=== PATIENT | female | born 1935 | race Caucasian/White ===

== ENCOUNTER → 2021-04-23 | Outpatient (CLI) | payer OTHER ==
[~2021-04-23] MED LIST: AMIO200 PO; ASPI81EC PO; ATOR10 PO; CHOL10002 PO; Coumadin5 MG PO; DIPH50 PO; DOCU100 PO; LOSHYD PO; Lopressor 25 mg25 MG PO; Lovenox60 MG/0.6 SC; MULVITMIND PO; Ocuvite Lutein1 EACH PO; VITAMIN D10000 UNIT PO
[2021-04-27 13:10] LABS: M-SPIKE, % Not Observed % (Not Observed); PROTEIN,TOTAL,URINE 8.3 mg/dL (Not Estab.)
== END | disposition home or self-care (01) ==
LOC: LAB 07:00 → LAB SHORT 07:00 → LAB FUT 04-08 09:25
PROVIDERS: Internal Medicine
DX: R79.89 Other specified abnormal findings of blood chemistry (principal)
CPT/HCPCS: 81050; 84166; 86335

== ENCOUNTER 2021-08-15 11:49 | Emergency (ER) | payer OTHER ==
[~2021-08-15] VITALS: Ht 165.1 cm; Wt 59.0 kg
[2021-08-15 12:14] LABS: BASOPHILS ABSOLUTE AUTO 0.08 K/mm3 (0.00-0.23); BASOPHILS PERCENT AUTO 1 % (0-2); EOSINOPHILS PERCENT AUTO 4 % (0-6); Hematocrit 43.9 % (33.0-51.0); IMMATURE GRAN ABSOLUTE AUTO 0.04 K/mm3 (0.00-0.10); IMMATURE GRAN PERCENT AUTO 0 % (0-1); LYMPHOCYTES ABSOLUTE AUTO 1.79 K/mm3 (0.84-5.20); LYMPHOCYTES PERCENT AUTO 18 % (21-46); MONOCYTES PERCENT AUTO 9 % (4-13); Mean Corpuscular HGB 29.6 pg (26.0-34.0); Mean Corpuscular HGB Conc 31.9 g/dL (31.5-36.5); Mean Corpuscular Volume 93 fL (80-100); Mean Platelet Volume 9.2 fL (9.1-12.4); NEUTROPHILS PERCENT AUTO 68 % (41-73); Platelet Count 749 K/mm3 (150-400); RDW Coefficient Variation 12.8 % (11.7-14.2); RDW Standard Deviation 44.3 fL (35.1-46.3); Red Blood Cell Count 4.73 M/mm3 (3.80-5.20); White Blood Cell Count 9.91 K/mm3 (4.00-11.30)
[2021-08-15] MEDS ORDERED: ATOR10 PO (12:32)
[2021-08-15] MEDS ORDERED: LOSA50 PO (12:33)
[2021-08-15] MEDS ORDERED: HYDCHL12.5 PO (12:33)
[2021-08-15 12:34] LABS: Albumin, Blood 3.7 g/dL (3.4-5.0); Albumin/Globulin Ratio 1.1 (0.8-1.8); Bilirubin, Total 0.7 mg/dL (0.1-1.0); Bun/Creatinine Ratio 33.2 (12.0-20.0); Calcium, Blood 9.5 mg/dL (8.5-10.1); Creatinine, Blood 0.93 mg/dL (0.40-1.00); Globulin, Blood 3.4 g/dL (2.2-4.0); Potassium, Blood 4.1 mmol/L (3.5-5.5); Total Protein, Blood 7.1 g/dL (6.4-8.2)
[2021-08-15] MEDS ORDERED: Amlodipine Bes2.5 MG (12:34)
[2021-08-15] MEDS ORDERED: POTA10T PO (12:34)
[2021-08-15 12:47] LABS: Source, Urine Voided
[2021-08-15 12:50] LABS: Appearance, Urine Clear (Clear); Bilirubin, Urine Neg (Neg); Blood, Urine 3+ (Neg); Color, Urine Yellow (P-Yellow); Glucose Qualitative, Urine Neg (Neg); Ketones, Urine Neg (Neg); Leukocyte Esterase, Urine 3+ (Neg); Nitrite, Urine Neg (Neg); Protein, Urine Neg (Neg); Urobilinogen, Urine NORM (Normal)
[2021-08-15 13:03] LABS: Amorphous Casts Rare /lpf (0); Bacteria Few /hpf; Squamous Epithelial Cells Few /hpf (Few)
[2021-08-15] MEDS ORDERED: CEPH500 PO (14:25)
== END 2021-08-15 14:46 | disposition home or self-care (01) ==
LOC: ER 11:49
PROVIDERS: Emergency Medicine
DX: N39.0 Urinary tract infection, site not specified (principal); R41.0 Disorientation, unspecified; I10 Essential (primary) hypertension; Z91.040 Latex allergy status; Z79.899 Other long term (current) drug therapy; Z79.82 Long term (current) use of aspirin
CPT/HCPCS: 70450; 80053; 81001; 85025; 87086; 93005; 93010; A9270

== ENCOUNTER → 2022-08-19 | Outpatient (CLI) | payer OTHER ==
[~2022-08-19] MED LIST changes: +Amlodipine Bes2.5 MG; +CEPH500 PO; +HYDCHL12.5 PO; +LOSA50 PO; +POTA10T PO
[2022-08-19 10:33] LABS: BASOPHILS PERCENT AUTO 1 % (0-2); EOSINOPHILS ABSOLUTE AUTO 0.41 K/mm3 (0.00-0.68); EOSINOPHILS PERCENT AUTO 3 % (0-6); Hematocrit 42.5 % (33.0-51.0); Hemoglobin 13.7 g/dL (11.5-16.0); IMMATURE GRAN ABSOLUTE AUTO 0.05 K/mm3 (0.00-0.10); IMMATURE GRAN PERCENT AUTO 0 % (0-1); LYMPHOCYTES PERCENT AUTO 14 % (21-46); MONOCYTES ABSOLUTE AUTO 1.06 K/mm3 (0.16-1.47); MONOCYTES PERCENT AUTO 9 % (4-13); Mean Corpuscular HGB 29.8 pg (26.0-34.0); Mean Corpuscular HGB Conc 32.2 g/dL (31.5-36.5); Mean Corpuscular Volume 92 fL (80-100); Mean Platelet Volume 9.2 fL (9.1-12.4); NEUTROPHILS ABSOLUTE AUTO 8.57 K/mm3 (1.96-9.15); NEUTROPHILS PERCENT AUTO 72 % (41-73); Platelet Count 841 K/mm3 (150-400); RDW Coefficient Variation 13.5 % (11.7-14.2); White Blood Cell Count 11.89 K/mm3 (4.00-11.30)
[2022-08-19 10:55] LABS: Alanine Aminotransfer (ALT/SGP 21 U/L (12-78); Albumin, Blood 3.7 g/dL (3.4-5.0); Albumin/Globulin Ratio 1.2 (0.8-1.8); Alk Phos 76 U/L (50-136); Anion Gap 3 mmol/L (6-16); Aspartate Aminotrans (AST/SGOT 15 U/L (12-37); Bilirubin, Direct 0.1 mg/dL (0.0-0.3); Bilirubin, Indirect 0.4 mg/dL (0.1-0.7); Bilirubin, Total 0.5 mg/dL (0.1-1.0); Blood Urea Nitrogen 24 mg/dL (8-24); Bun/Creatinine Ratio 29.6 (12.0-20.0); CHOL/HDL RATIO 2.5; CO2, Blood 32 mmol/L (21-32); Calcium, Blood 9.4 mg/dL (8.5-10.1); Chloride, Blood 105 mmol/L (98-108); Cholesterol 168 mg/dL (50-200); Creatinine, Blood 0.81 mg/dL (0.40-1.00); Glomerular Filtration Rate 70 (60-); Glucose, Blood 101 mg/dL (70-99); HDL Cholesterol 67 mg/dL (>39); LDL/HDL RATIO 1.2; Low Density Lipoprotein Chol 80 mg/dL (0-110); Potassium, Blood 3.9 mmol/L (3.5-5.5); Sodium, Blood 140 mmol/L (136-145); Total Protein, Blood 6.7 g/dL (6.4-8.2); Triglycerides 103 mg/dL (30-160); Very Low Density Lipoprot Chol 20 mg/dL (6-32)
== END | disposition home or self-care (01) ==
LOC: LAB 08:39 → LAB SHORT 08:39 → LAB FUT 09-27 10:40
PROVIDERS: Internal Medicine
DX: I10 Essential (primary) hypertension (principal); E78.5 Hyperlipidemia, unspecified; M81.0 Age-related osteoporosis without current pathological fracture; N39.0 Urinary tract infection, site not specified; E55.9 Vitamin D deficiency, unspecified; R73.9 Hyperglycemia, unspecified
CPT/HCPCS: 36415; 80048; 80061; 80076; 82306; 83036; 85025

== ENCOUNTER 2022-10-21 08:04 | Inpatient (IN) | payer OTHER ==
[~2022-10-21] VITALS: Ht 160 cm; Wt 50.0 kg
[2022-10-21 08:39] LABS: BASOPHILS PERCENT AUTO 1 % (0-2); EOSINOPHILS ABSOLUTE AUTO 0.32 K/mm3 (0.00-0.68); EOSINOPHILS PERCENT AUTO 2 % (0-6); Hematocrit 49.1 % (33.0-51.0); Hemoglobin 16.1 g/dL (11.5-16.0); IMMATURE GRAN ABSOLUTE AUTO 0.08 K/mm3 (0.00-0.10); IMMATURE GRAN PERCENT AUTO 1 % (0-1); LYMPHOCYTES ABSOLUTE AUTO 1.52 K/mm3 (0.84-5.20); LYMPHOCYTES PERCENT AUTO 10 % (21-46); MONOCYTES ABSOLUTE AUTO 1.36 K/mm3 (0.16-1.47); MONOCYTES PERCENT AUTO 9 % (4-13); Mean Corpuscular HGB 29.1 pg (26.0-34.0); Mean Corpuscular HGB Conc 32.8 g/dL (31.5-36.5); Mean Corpuscular Volume 89 fL (80-100); Mean Platelet Volume 8.8 fL (9.1-12.4); NEUTROPHILS ABSOLUTE AUTO 11.61 K/mm3 (1.96-9.15); NEUTROPHILS PERCENT AUTO 78 % (41-73); Platelet Count 707 K/mm3 (150-400); RDW Coefficient Variation 12.9 % (11.7-14.2); RDW Standard Deviation 42.5 fL (35.1-46.3); Red Blood Cell Count 5.53 M/mm3 (3.80-5.20); White Blood Cell Count 14.99 K/mm3 (4.00-11.30)
[2022-10-21 09:03] LABS: Albumin, Blood 3.4 g/dL (3.4-5.0); Albumin/Globulin Ratio 0.8 (0.8-1.8); Bilirubin, Total 0.7 mg/dL (0.1-1.0); Bun/Creatinine Ratio 29.2 (12.0-20.0); Calcium, Blood 9.7 mg/dL (8.5-10.1); Creatinine, Blood 0.72 mg/dL (0.40-1.00); Globulin, Blood 4.3 g/dL (2.2-4.0); Potassium, Blood 3.9 mmol/L (3.5-5.5); Total Protein, Blood 7.7 g/dL (6.4-8.2)
[2022-10-21 09:32] LABS: Source, Urine Straight Cath
[2022-10-21 09:53] LABS: Appearance, Urine Clear (Clear); Bilirubin, Urine Neg (Neg); Blood, Urine 1+ (Neg); Color, Urine Yellow (P-Yellow); Glucose Qualitative, Urine Neg (Neg); Ketones, Urine Neg (Neg); Leukocyte Esterase, Urine 1+ (Neg); Nitrite, Urine Neg (Neg); Protein, Urine 1+ (Neg); Urobilinogen, Urine NORM (Normal); pH, Urine 6.5 (5.0-8.0)
[2022-10-21 10:12] LABS: Influenza A, PCR NEGATIVE (NEGATIVE); Influenza B, PCR NEGATIVE (NEGATIVE); Resp Syncytial Virus, PCR NEGATIVE (NEGATIVE); SARS-Cov-2 (COVID-19) PCR, MMC NEGATIVE (NEGATIVE)
[2022-10-21 10:19] LABS: Red Blood Cells, Urine 0-2 /hpf (0-2); Squamous Epithelial Cells Rare /hpf (Few)
[2022-10-21 10:20] LABS: Bacteria Mod /hpf; Mucus Light (0-Heavy)
[2022-10-21 12:36] LABS: CHOL/HDL RATIO 2.7; Cholesterol 163 mg/dL (50-200); HDL Cholesterol 60 mg/dL (>39); LDL/HDL RATIO 1.4; Low Density Lipoprotein Chol 83 mg/dL (0-110); Triglycerides 101 mg/dL (30-160); Very Low Density Lipoprot Chol 20 mg/dL (6-32)
[2022-10-21 12:53] LABS: Creatine Kinase MB 2.2 ng/mL (0.0-3.6); Creatine Kinase MB Index 2.7 (0.0-4.0)
--- NOTE | 2022-10-21 14:30 | NUR ---
PT ARRIVED TO THE [facility] FLOOR FROM THE ER VIA GURNEY. THE PT WAS ABLE TO TRANSFER FROM THE GURNEY TO THE BED WITH MODERATE 2 PER SON ASSIST. PT APPEARS TO BE BREATHING EASILY ON RA. PT REPORTED MILD PAIN IN HER FEET. THE PT IS ALERT ORIENTED TO PLACE, SELF AND SITUATION. PT WAS ORIENTED TO THE ROOM LAYOUT AND CALL SYSTEM . HEPRIN GTT STARTED. CALL LIGHTIN REACH. WILL CONTINUE TO MONIOTR AND ASSESS FOR CHANGES
[2022-10-21 15:23] LABS: Anti-Xa UFH, PHA Monitoring <0.10 IU/mL; International Normalized Ratio 1.06; Prothrombin Time Results 11.1 Sec (9.7-11.5)
--- NOTE | 2022-10-22 05:59 | NUR ---
SHIFT SUMMERY, PT CONFUSED NOT SURE WHAT TIME IT IS OR DAY. PT PULLING OFF BEDDING FROM BED SETTING OFF BED ALRM FREQUENTLY. PT HAS BEEN AWKE NEARLY ALL NIGHT. PT AT ONE TIME CRYING SAYING SHE WANTED HER TO COME AND PICK HER UP TO GO HOME. REMINDED PT IT WAS 0200 AM BUT PT STILL WATED TO GO. IF ASKE ABOUT BEING ANURES PT SEEMES TO BE UNCONFUSED AND CAN TELL YOU IN DETAIL ABOUT HER JOBS. CALL LIGHT IN REACH BED ALRM ON. PT USING BSC PT VERY WEAK.
[2022-10-22 06:29] LABS: BASOPHILS ABSOLUTE AUTO 0.08 K/mm3 (0.00-0.23); BASOPHILS PERCENT AUTO 1 % (0-2); EOSINOPHILS PERCENT AUTO 2 % (0-6); Hematocrit 46.4 % (33.0-51.0); IMMATURE GRAN ABSOLUTE AUTO 0.06 K/mm3 (0.00-0.10); IMMATURE GRAN PERCENT AUTO 0 % (0-1); LYMPHOCYTES ABSOLUTE AUTO 2.11 K/mm3 (0.84-5.20); LYMPHOCYTES PERCENT AUTO 15 % (21-46); MONOCYTES ABSOLUTE AUTO 1.39 K/mm3 (0.16-1.47); MONOCYTES PERCENT AUTO 10 % (4-13); Mean Corpuscular HGB 28.6 pg (26.0-34.0); Mean Corpuscular HGB Conc 32.3 g/dL (31.5-36.5); Mean Corpuscular Volume 88 fL (80-100); NEUTROPHILS ABSOLUTE AUTO 10.41 K/mm3 (1.96-9.15); NEUTROPHILS PERCENT AUTO 73 % (41-73); Platelet Count 826 K/mm3 (150-400); RDW Coefficient Variation 12.8 % (11.7-14.2); RDW Standard Deviation 41.2 fL (35.1-46.3); Red Blood Cell Count 5.25 M/mm3 (3.80-5.20); White Blood Cell Count 14.35 K/mm3 (4.00-11.30)
[2022-10-22 06:53] LABS: Albumin, Blood 3.2 g/dL (3.4-5.0); Albumin/Globulin Ratio 0.9 (0.8-1.8); Bilirubin, Total 0.5 mg/dL (0.1-1.0); Bun/Creatinine Ratio 17.9 (12.0-20.0); Calcium, Blood 9.3 mg/dL (8.5-10.1); Creatinine, Blood 0.84 mg/dL (0.40-1.00); Globulin, Blood 3.7 g/dL (2.2-4.0); Potassium, Blood 3.1 mmol/L (3.5-5.5); Total Protein, Blood 6.9 g/dL (6.4-8.2)
--- NOTE | 2022-10-22 10:56 | NUR ---
DISCUSSED BP WITH DR BARNEY. AMLODIPINE ORDERED/ PT IS DNR NOT COMFORT. HOSPICE AT HOME.
--- NOTE | 2022-10-22 14:33 | NUR ---
SPOKE EMILY BARNEY, ORDER TO DC TELE, TELE REMOVED FROM PATIENT
--- NOTE | 2022-10-22 15:50 | NUR ---
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 She lives with her , who is also of advanced age and fairly frail. Her PCP is Dr Reed. Both and pt are veterans. Pt is a [employer] . in to visit and I met with both pt and . Pt has had periods of agitation and wanting to leave to go home per noc shift notes and her bedside RN today. is able to tell me that Dr Reed has ordered Hospice services with [facility] on the . I confirmed this with [facility] internal combustion engine assembler service. They state pt shows pending in the system but no SOC date noted. She will ask the local internal combustion engine assembler mechanical energy engineer to contact us for further clarification. No other family/NOK contact listed in pt's record other than . I inquired about other family or support persons locally. Pt's two children are . has three sons, with the closest one in [place]. They call and check in, visit occassionally but are not able to assist with support in the home regularly. states someone from their [employer] is coming a couple times per month to clean but no caregiving. I asked that they consider all resources locally and try to "gather some troops" for help in the home if possible. Pt/ clear that home is where they want pt to receive her care and to remain. I briefly discussed the possibility of [facility] assistance with CG in the home or LT placement for hospice care. was not clear that Hospice was intermittent services and not round the clock care. I reinforced that they would need additional care in conjunction with hospice in the home. acknowledges that home is not safe in light of pt's inability to remember to use her FWW or wait for assist/supervision. PT eval reviewed and pt is ambulatory with SBA and FWW. Pt/ verbally agreeable, although pt may forget conversation, to remain in hospital until d/c planning and additional resources in the home can be researched and hopefully implemented. Pt denies pain. She is calm and smiling, verbal and articulate during my visit. She allowed her to do most of the story telling and smiled in agreement while he told me of their history, how Shira became a nurse and about her work history as well as telling me much about his health issues he is [facility], as recently as spending the day at the [place] urgent care [facility] u[facility] clinic yesterday. I asked if I could call his son and he declined. One son called during my visit and arranged to call him back after our visit. Plan f/u with palliative care for advanced care planning, s/s management and CM to see Monday for assist with d/c planning and gathering resources for safe d/c. [facility] notified of pt's admission.
--- NOTE | 2022-10-22 18:38 | NUR ---
PATIENT ORIENTED TO SELF WITH FORGETFULNESS DURING THE DAY. FORGETS LIMITATIONS, NEEDS FREQUENT SAFETY REMINDERS. CALL LIGHT IN REACH. BED IN LOW POSITION WITH ALARM ON. VISITED TODAY AND PATIENT SETTLED DOWN AFTER THAT. BLOOD PRESSURE HIGH THIS AM, DR BARNEY NOTIFIED AND AMLODIPINE 5MG ADDED TO MAR. AWAITING PLACEMENT
--- NOTE | 2022-10-23 02:25 | NUR ---
SHIFT SUMMERY. PT RESTING IN BED, PT MUCH LESS AGITATED TONIGHT THAN LAST NOC. PT SLEEPING OFF AND ON BUT STILL AWAKE OFTEN. CALL LIGHT IN REACH AND BED ALARM ON.
--- NOTE | 2022-10-23 16:53 | NUR ---
PATIENT RESTING TODAY IN BED. VISITED MIDDAY. APPETITE GOOD. PATIENT MEDICATED PER MAR FOR PAIN IN FEET, VERBALIZED DECREASE IN PAIN LEVEL. BED ALARM ON, DOOR OPEN. WILL CONTINUE TO MONITOR.
--- NOTE | 2022-10-24 03:32 | NUR ---
SHIFT SUMMERY, PT AT START OF SHIFT WAS UPSET AND CRYING, PT HAD ASKED WHERE HER WAS AND WAS TOLD HE WENT HOME, PT STATED HE LEFT HER . REASURED HER THINGS WERE BEING MADE READY SO SHE COULD GO HOME WITH HER SO HE COULD TAKE CARE OF HER. PT SLEEPING WELL THIS SHIFT GETTING UP TO VOID THEN BACK TO BED. CALL LIGHT IN REACH BED ALARM ON.
--- NOTE | 2022-10-24 17:06 | NUR ---
THIS [facility]ATOR STORE HAS REVIEWED ALL NOTE AND ASSESSMENT AND AGREES WITH THEM BY KELTON CHERYL.
--- NOTE | 2022-10-24 17:12 | NUR ---
PATIENT WITH ANXIETY TODAY, ORIENTED TO SELF, RELAXES MORE WITH PRESENT. INCREASED DIFFICULTY WITH STANDING TODAY COMPARED TO YESTERDAY. PATIENT OFFERED TO ASSIST BACK TO BED MULTIPLE TIMES THROUGH DAY, PATIENT DECLINES AND STATES SHE WANTS TO SIT IN CHAIR. SCHEDULER ASSISTED PATIENT TO STAND EVERY 1-2 HOURS THROUGHTOUT DAY. CHAIR ALARM ON WHEN PATIENT IN CHAIR, BED ALARM ON WHEN PATIENT IN BED.
--- NOTE | 2022-10-25 04:29 | NUR ---
SHIFT SUMMARY PT ORIENTED TO SELF ONLY. HAS BEEN RESTING IN BED MOST OF THIS SHIFT. NO COMPLAINTS REPORTED BY PT OR OTHER STAFF. NOT ABLE TO REMEMBER TO USE CALL LIGHT. BED IN LOW POSITION WITH ALARM ON. CALL LIGHT IN REACH. WILL CONTINUE TO MONITOR AND PROVIDE CARE T/O SHIFT.
--- NOTE | 2022-10-25 16:43 | NUR ---
PATIENT A/O TO SELF AND FAMILY ONLY. DENIES ANY PAIN TODAY. VSS, ON RA. FALL PRECAUTIONS IN PLACE. AT BEDSIDE THIS AFTERNOON AND PATIENT MUCH CALMER WITH HIM PRESENT. NO NEW CONCERNS THIS SHIFT, AWAITING FIRE CONTROLMAN PLACEMENT.
--- NOTE | 2022-10-26 15:52 | NUR ---
SPOUCE AT BEDSIDE THEY ARE RESTING QUETLY TOGETHER. CONTINUE POC.
--- NOTE | 2022-10-26 17:14 | NUR ---
EVENING NOTE PT AT BEDSIDE. EVENING NOTE SPOUCE AT BEDSIDE. HE HAS HIS ADDRESS WROTE ON THE BRIM OF HIS HAT. HE IS MAKING APPROPRIATE REQUESTS FOR THE BOTH OF THEM. SHE IS RESTING QUIETLY. SHE HAS TRIED TO GET UP 3 TIMES TODAY WITHOUT HELP. CHAIR/BED ALARM IN USE. GOOD APPETITE. DENIED PAIN OR DISCOMFORT. CONTINUE POC.
--- NOTE | 2022-10-27 03:41 | NUR ---
SHIFT MOSTLY UNREMARKABLE. IV INFILTRATED EARLY IN SHIFT AND WAS PROMPTLY REMOVED. ACQUIRED NO IV ORDER FROM HOSPITALIST AND ENTERED INTO CHART. PT IS AOX2, SPORADICALLY IMPULSIVELY OOB EARLY IN SHIFT BUT HAS SLEPT THROUGH MOST OF SHIFT SINCE. EASILY REDIRECTABLE. PLEASANT AND COOPERATIVE WITH CARE. CALL LIGHT LEFT WITHIN REACH.
--- NOTE | 2022-10-27 11:01 | NUR ---
DISCHARGE HOME PT DISCHARGED HOME VIA W/C ACCOMPANIED BY TRANSPORT PERSONEL. PT DRESSED IN STREET CLOTHES. ATTENDS CHANGED. NO COLLIN TO REMOVE. [facility] AWARE OF TRANSPORT TIME. CONTINUE POC.
== END 2022-10-27 10:59 | disposition hospice, home (50) | DRG 301 ==
LOC: ER 08:04 → MEDS 11:52
PROVIDERS: Emergency Medicine; Family Medicine; ADMIT Internal Medicine
DX: I74.3 Embolism and thrombosis of arteries of the lower extremities (principal); I25.10 Atherosclerotic heart disease of native coronary artery without angina pectoris; I10 Essential (primary) hypertension; I16.0 Hypertensive urgency; Z51.5 Encounter for palliative care; R29.6 Repeated falls; R62.7 Adult failure to thrive; I70.202 Unspecified atherosclerosis of native arteries of extremities, left leg; F03.90 Unspecified dementia, unspecified severity, without behavioral disturbance, psychotic disturbance, mood disturbance, and anxiety; N81.10 Cystocele, unspecified; E87.6 Hypokalemia; Z20.822 Contact with and (suspected) exposure to COVID-19; Z86.61 Personal history of infections of the central nervous system; Z68.22 Body mass index [BMI] 22.0-22.9, adult; Z95.1 Presence of aortocoronary bypass graft; Z88.8 Allergy status to other drugs, medicaments and biological substances; Z91.040 Latex allergy status; Z79.899 Other long term (current) drug therapy
CPT/HCPCS: 0241U; 36415; 51701; 80053; 80061; 81001; 82550; 82553; 83036; 83605; 83690; 84443; 84484; 85025; 85520; 85610; 85730; 87086; 93005; 93010; 93926; 96360; 97161; 99285-25; A9270; J1644; J7030; P9612